=== PATIENT | female | born 1980 | race African-American/Black ===

== ENCOUNTER 2017-07-05 12:59 | Emergency (ER) | payer BC, OTHER ==
[~2017-07-05] VITALS: Ht 160 cm; Wt 68.0 kg
[2017-07-05] MEDS ORDERED: IBUPROFEN 200200 M1 PO (13:12)
[2017-07-05 13:34] LABS: ABSOLUTE NEUTROPHILS 5.9 thou/uL (1.4-8.2); BASOPHILS 0.6 % (0.0-2.0); HEMATOCRIT 34.6 % (37.0-47.0); HEMOGLOBIN 11.6 gm/dL (12.0-15.0); LYMPHOCYTES 32.6 % (24.0-44.0); MCH 29.7 pg (26.0-34.0); MCHC 33.6 g/dL (28.0-37.0); MCV 88.3 fL (80.0-100.0); MONOCYTES 5.4 % (1.0-8.0); PLATELET COUNT 302 thou/uL (150-400); POLYS 60.4 % (36.0-66.0); RBC 3.91 mil/uL (4.20-5.00); RDW 14.7 % (10.5-14.5); WBC 9.8 thou/uL (4.0-11.0)
[2017-07-05 13:35] LABS: MANUAL DIFF NO
[2017-07-05 13:40] LABS: CALCIUM 9.1 mg/dL (8.5-10.1); POTASSIUM 4.3 mmol/L (3.5-5.1)
[2017-07-05 13:44] LABS: URINE BILIRUBIN NEGATIVE (Negative); URINE BLOOD 1+ (Negative); URINE COLOR YELLOW; URINE GLUCOSE-RANDOM* NEGATIVE (Negative); URINE KETONES NEGATIVE (Negative); URINE LEUKOCYTES-REFLEX TRACE (Negative); URINE PROTEIN (DIPSTICK) NEGATIVE (Negative); URINE UROBILINOGEN 0.2 E.U./dl (0.2-1.0)
[2017-07-05 13:46] LABS: ALBUMIN 4.2 g/dL (3.4-5.0); TOTAL BILIRUBIN 0.2 mg/dL (<0.1-1.0); TOTAL PROTEIN 7.7 g/dL (6.4-8.2)
[2017-07-05 14:10] LABS: SQUAMOUS >10 Many /LPF (0-3)
[2017-07-05 14:11] LABS: URINE WBC-REFLEX 0-5 Rare /HPF (0-5)
[2017-07-05 14:12] LABS: CASTS None Seen /LPF (None Seen); CRYSTALS None Seen /LPF (None Seen); URINE RBC None Seen /HPF (0-2)
[2017-07-05] MEDS ORDERED: ZOFRAN ODT4 MG PO (14:19)
[2017-07-05 14:29] VITALS: BP 137/95
== END 2017-07-05 14:32 | disposition home or self-care (01) ==
LOC: ER 12:59
PROVIDERS: Physician Assistant
DX: R11.2 Nausea with vomiting, unspecified (principal)

== ENCOUNTER 2017-07-11 13:37 | Observation (INO) | payer BC, OTHER ==
[~2017-07-11] VITALS: Ht 160 cm; Wt 72.1 kg
[~2017-07-11 13:37] MED LIST: IBUPROFEN 200200 M1 PO; ZOFRAN ODT4 MG PO
[2017-07-11 13:38] VITALS: BP 159/106
[2017-07-11] MEDS ORDERED: TYLENOL325 MG PO (14:18)
[2017-07-11 14:21] LABS: ABSOLUTE NEUTROPHILS 5.7 thou/uL (1.4-8.2); BASOPHILS 0.5 % (0.0-2.0); EOSINOPHILS 0.9 % (0.0-3.0); HEMATOCRIT 36.4 % (37.0-47.0); LYMPHOCYTES 27.1 % (24.0-44.0); MCHC 32.9 g/dL (28.0-37.0); MCV 88.2 fL (80.0-100.0); MONOCYTES 7.6 % (1.0-8.0); PLATELET COUNT 280 thou/uL (150-400); POLYS 63.9 % (36.0-66.0); RBC 4.13 mil/uL (4.20-5.00); RDW 14.7 % (10.5-14.5); WBC 8.9 thou/uL (4.0-11.0)
[2017-07-11 14:24] LABS: MANUAL DIFF NO
[2017-07-11 14:28] LABS: CALCIUM 9.3 mg/dL (8.5-10.1); CREATININE 1.1 mg/dL (0.6-1.0); POTASSIUM 3.6 mmol/L (3.5-5.1)
[2017-07-11 14:34] LABS: ALBUMIN 4.5 g/dL (3.4-5.0); TOTAL BILIRUBIN 0.3 mg/dL (<0.1-1.0); TOTAL PROTEIN 8.3 g/dL (6.4-8.2)
[2017-07-11 15:37] LABS: URINE BILIRUBIN NEGATIVE (Negative); URINE BLOOD TRACE (Negative); URINE COLOR YELLOW; URINE GLUCOSE-RANDOM* NEGATIVE (Negative); URINE KETONES 2+ (Negative); URINE LEUKOCYTES-REFLEX TRACE (Negative); URINE PROTEIN (DIPSTICK) NEGATIVE (Negative); URINE SPECIFIC GRAVITY 1.025 (1.003-1.035)
[2017-07-11 17:35] VITALS: BP 128/80
[2017-07-11 18:20] VITALS: BP 151/96
[2017-07-11 21:00] VITALS: BP 130/90
[2017-07-12 04:50] VITALS: BP 114/67
[2017-07-12 06:04] LABS: HEMATOCRIT 29.6 % (37.0-47.0); MCH 29.4 pg (26.0-34.0); MCHC 33.1 g/dL (28.0-37.0); MCV 88.8 fL (80.0-100.0); RBC 3.33 mil/uL (4.20-5.00); RDW 14.9 % (10.5-14.5); WBC 6.8 thou/uL (4.0-11.0)
[2017-07-12 06:09] LABS: HEMOGLOBIN 9.8 gm/dL (12.0-15.0)
[2017-07-12 06:22] LABS: ALBUMIN 3.3 g/dL (3.4-5.0); CALCIUM 8.1 mg/dL (8.5-10.1); CREATININE 0.9 mg/dL (0.6-1.0); POTASSIUM 3.5 mmol/L (3.5-5.1); TOTAL BILIRUBIN 0.3 mg/dL (<0.1-1.0); TOTAL PROTEIN 6.2 g/dL (6.4-8.2)
[2017-07-12 08:00] VITALS: BP 121/74
[2017-07-12] MEDS ORDERED: LACTULOSE10 GM/153 PO (13:57)
[2017-07-12] MEDS ORDERED: PROTONIX 20 MG20 M1 PO (14:00)
[2017-07-12 14:29] VITALS: BP 121/74
[2017-07-12 17:11] VITALS: BP 121/74
== END 2017-07-12 15:20 | disposition home or self-care (01) ==
LOC: ER 13:37 → EROBS 16:48 → 4S 16:48
PROVIDERS: Internal Medicine; Physician Assistant
DX: R11.2 Nausea with vomiting, unspecified (principal); R10.13 Epigastric pain
CPT/HCPCS: 10195

== ENCOUNTER 2017-07-15 11:32 | Emergency (ER) | payer BC, OTHER ==
[~2017-07-15] VITALS: Ht 175.3 cm; Wt 72.1 kg
[~2017-07-15 11:32] MED LIST changes: +LACTULOSE10 GM/153 PO; +PROTONIX 20 MG20 M1 PO; +TYLENOL325 MG PO
[2017-07-15 12:47] LABS: URINE BILIRUBIN NEGATIVE (Negative); URINE BLOOD TRACE (Negative); URINE COLOR YELLOW; URINE GLUCOSE-RANDOM* NEGATIVE (Negative); URINE KETONES 3+ (Negative); URINE LEUKOCYTES-REFLEX NEGATIVE (Negative); URINE PROTEIN (DIPSTICK) TRACE (Negative); URINE SPECIFIC GRAVITY 1.025 (1.003-1.035); URINE UROBILINOGEN 0.2 E.U./dl (0.2-1.0)
[2017-07-15 14:07] LABS: ABSOLUTE NEUTROPHILS 4.4 thou/uL (1.4-8.2); BASOPHILS 0.8 % (0.0-2.0); HEMATOCRIT 34.7 % (37.0-47.0); HEMOGLOBIN 11.6 gm/dL (12.0-15.0); LYMPHOCYTES 30.3 % (24.0-44.0); MCHC 33.3 g/dL (28.0-37.0); MCV 87.1 fL (80.0-100.0); MONOCYTES 8.5 % (1.0-8.0); PLATELET COUNT 299 thou/uL (150-400); POLYS 58.4 % (36.0-66.0); RBC 3.98 mil/uL (4.20-5.00); RDW 14.6 % (10.5-14.5); WBC 7.5 thou/uL (4.0-11.0)
[2017-07-15 14:08] LABS: MANUAL DIFF NO
[2017-07-15 14:20] LABS: CALCIUM 8.9 mg/dL (8.5-10.1); CREATININE 0.9 mg/dL (0.6-1.0); POTASSIUM 3.1 mmol/L (3.5-5.1)
[2017-07-15 14:26] LABS: TOTAL BILIRUBIN 0.2 mg/dL (<0.1-1.0); TOTAL PROTEIN 7.6 g/dL (6.4-8.2)
[2017-07-15] MEDS ORDERED: PROMS25 WY RECTAL (15:25)
[2017-07-15 15:56] VITALS: BP 148/92
== END 2017-07-15 15:57 | disposition home or self-care (01) ==
LOC: ER 11:32
PROVIDERS: Physician Assistant
DX: R10.13 Epigastric pain (principal); R11.2 Nausea with vomiting, unspecified; E87.6 Hypokalemia; Z98.890 Other specified postprocedural states